=== PATIENT | male | born 1995 | race Caucasian/White ===

== ENCOUNTER 2017-12-04 18:51 | Observation (INO) | payer BC ==
[~2017-12-04] VITALS: Ht 177.8 cm; Wt 81.6 kg
[2017-12-04 19:33] LABS: BASOPHILS # (AUTO) 0.1 (0.0-0.1); BASOPHILS % 0.8 % (0.0-1.0); EOSINOPHILS # (AUTO) 0.1 (0.0-0.4); HEMATOCRIT 46.2 % (38.2-49.6); LYMPHOCYTES # (AUTO) 3.4 (1.0-3.2); LYMPHOCYTES % 32.2 % (18.0-39.1); MEAN CORPUSCULAR HEMOGLOBIN 31.6 pg (28-32); MEAN CORPUSCULAR HGB CONC 34.6 g/dL (31-35); MEAN CORPUSCULAR VOLUME 91.3 fL (81-99); MONOCYTES # (AUTO) 0.7 (0.2-0.8); MONOCYTES % 6.5 % (4.4-11.3); NEUTROPHILS # (AUTO) 6.3 (2.1-6.9); NEUTROPHILS % 59.2 % (38.7-80.0); PLATELET COUNT 296 x10e3/uL (140-360); RED BLOOD COUNT 5.06 x10e6/uL (4.3-5.7); RED CELL DISTRIBUTION WIDTH 12.6 % (11.7-14.4)
[2017-12-04 19:37] LABS: BILIRUBIN,URINE NEGATIVE (NEGATIVE); CLARITY,URINE SL CLOUDY (CLEAR); COLOR,URINE YELLOW (YELLOW); KETONES,URINE NEGATIVE (NEGATIVE); LEUKOCYTE ESTERASE ,URINE NEGATIVE (NEGATIVE); NITRITE,URINE NEGATIVE (NEGATIVE); PROTEIN,URINE DIPSTICK NEGATIVE (NEGATIVE); URINE UROBILINOGEN 0.2 mg/dL (0.2 - 1)
[2017-12-04 19:39] LABS: AMPHETAMINES SCREEN,URINE NEGATIVE (NEGATIVE); BENZODIAZEPINES SCREEN,URINE NEGATIVE (NEGATIVE); PHENCYCLIDINE SCREEN,URINE NEGATIVE (NEGATIVE)
[2017-12-04 19:48] LABS: BACTERIA,URINE FEW /HPF; MUCUS,URINE MODERATE (RARE)
[2017-12-04 19:50] LABS: ALANINE AMINOTRANSFERASE 12 IU/L (0-55); ALBUMIN 4.4 g/dL (3.5-5.0); ALBUMIN/GLOBULIN RATIO 1.4 (0.8-2.0); ALKALINE PHOSPHATASE 77 IU/L (40-150); ANION GAP 12.8 mmol/L (8-16); BLOOD UREA NITROGEN 17 mg/dL (7-26); BUN/CREATININE RATIO 21 (6-25); CALCIUM 9.6 mg/dL (8.4-10.2); CARBON DIOXIDE 24 mmol/L (22-29); CHLORIDE 107 mmol/L (98-107); CREATINE KINASE 193 IU/L (30-200); CREATININE, SERUM 0.82 mg/dL (0.72-1.25); EST GLOMERULAR FILTRATION RATE > 60 ML/MIN (60-); GLUCOSE 101 mg/dL (74-118); POTASSIUM 3.8 mmol/L (3.5-5.1); SODIUM 140 mmol/L (136-145)
--- NOTE | 2017-12-04 20:02 | Diagnostic Imaging Report ---
EXAMINATION: Head CT HISTORY: Woke up with right-sided numbness and weakness COMPARISON: None. TECHNIQUE: Multidetector axial images were obtained without contrast from the foramen magnum to the vertex . The images were reconstructed using brain and bone algorithms. Thin section brain images were reformatted into coronal and sagittal planes. Intravenous contrast: None. Motion/streaking artifact limits the evaluation of the skull base and posterior cranial fossa. FINDINGS: Parenchyma: 1. No abnormal densities. 2. No mass or hemorrhage. No CT evidence of acute territorial vascular insult. Extra-axial spaces:No abnormal density. No extra-axial fluid collections Brain volume: Normal for age. Ventricles: No hydrocephalus or displacement. Arteries: No density suggestive of thrombus. Dural sinuses: No abnormal density. Extra-axial spaces: No abnormal density. Foramen magnum: No mass, Chiari malformation, or basilar invagination. Sella: No obvious mass. Paranasal/mastoid sinuses: Imaged portions unremarkable. Skull/Scalp: No lytic or blastic lesions. No fractures. IMPRESSION: Normal head CT. Signed by: Dr. Krystal Chen M.D. on 12/04/2017 7:58 PM
--- NOTE | 2017-12-04 20:12 | Diagnostic Imaging Report ---
CHEST SINGLE (PORTABLE), 12/04/2017 7:17 PM Technique: CHEST SINGLE (PORTABLE) Comparison: None available. Clinical history: Right-sided weakness Findings: Unremarkable portable appearance of the heart, mediastinum, lungs and pleural spaces. Lung apices are excluded. Impression: 1. Lines/Tubes: None 2. No acute abnormality. Signed by: Dr Lashay Harris MD on 12/04/2017 8:09 PM
--- OUTSIDE RECORDS SUMMARY | 2017-12-04 21:17 | XMS REPORT ---
Author Author [facility] Address Unknown Phone Unavailable Care Team Providers Care Advertising Rep Name Role Phone RAFAEL SANDOVAL Unavailable Unavailable Problems This patient has no known problems. Allergies, Adverse Reactions, Alerts This patient has no known allergies or adverse reactions. Medications This patient has no known medications. Results Test Description Test Time Test Comments Text Results Atomic Results Result Comments CT BRAIN WO [place] [address] Patient Name: MIGUELINA BOLDEN MR #: [id number] : 1995 Age/Sex: 22/M Req # : [id number] Adm Physician: Ordered by: ELDA MENJIVAR MD Report # : [id number] Location: ER Room/Bed: Procedure: [id number] CT/CT BRAIN WO Exam Date: 12/04/17 Exam Time: 1932 REPORT STATUS: Signed EXAMINATION: Head CT HISTORY: Woke up with right-sided numbness and weakness COMPARISON: None. TECHNIQUE: Multidetector axial images were obtained without contrast from the foramen magnum to the vertex . The images were reconstructed using brain and bone algorithms. Thin section brain images were reformatted into coronal and sagittal planes. Intravenous contrast: None. Motion/streaking artifact limits the evaluation of the skull base and posterior cranial fossa. FINDINGS: Parenchyma: 1. No abnormal densities. 2. No mass or hemorrhage. No CT evidence of acute territorial vascular insult. Extra-axial spaces:No abnormal density. No extra-axial fluid collections Brain volume: Normal for age. Ventricles: No hydrocephalus or displacement. Arteries: No density suggestive of thrombus. Dural sinuses: No abnormal density. Extra-axial spaces: No abnormal density. Foramen magnum: No mass, Chiari malformation, or basilar invagination. Sella: No obvious mass. Paranasal/mastoid sinuses : Imaged portions unremarkable. Skull/Scalp: No lytic or blastic lesions. No fractures. IMPRESSION: Normal head CT. Signed by: Dr. Ambika Chen M.D. on 12/04/2017 7:58 PM Dictated By: AMBIKA CHEN MD 57 Transcribed By: KRAIG on 12/04/171957 COPY TO: ELDA MENJIVAR MD CHEST SINGLE (PORTABLE) [place] [address] Patient Name: MIGUELINA BOLDEN MR #: [id number] : 1995 Age/Sex: 22/M Req #: [id number] Adm Physician: Ordered by: ELDA MENJIVAR MD Report #: [id number] Location: ER Room/Bed: ___ Procedure: [id number] DX/CHEST SINGLE (PORTABLE) Exam Date: 12/04/17 Exam Time: 1932 REPORT STATUS: Signed CHEST SINGLE (PORTABLE), 12/04/2017 7:17 PM Technique: CHEST SINGLE (PORTABLE) Comparison: None available. Clinical history: Right-sided weakness Findings: Unremarkable portable appearance of the heart, mediastinum, lungs and pleural spaces. Lung apices are excluded. Impression: 1. Lines/ Tubes: None 2. No acute abnormality. Signed by: Dr Reza Harris MD on 8:09 PM Dictated By: REZA HARRIS MD 08 Transcribed By: KRAIG on 12/04/172008 COPY TO: ELDA MENJIVAR MD
[2017-12-04 21:19] LABS: INR 1.04; PROTHROMBIN TIME 12.8 seconds (11.9-14.5)
[2017-12-04 21:47] LABS: FREE THYROXINE INDEX 2.3851 (1.4-3.8); THYROID STIMULATING HORMONE 1.872 uIU/mL (0.350-4.940)
[2017-12-04] MEDS: SODIUM CHLORIDE 0.9% 1000ML 1,000 ML IV SCH (22:00)
[2017-12-04] MEDS: NICOTINE 21 MG/EA PATCH TOP SCH (22:08)
[2017-12-04 23:55] VITALS: BP 127/78
[2017-12-05] VITALS (8 sets, daily range): BP systolic 105–135; BP diastolic 55–78
[2017-12-05 04:08] LABS: BASOPHILS # (AUTO) 0.1 (0.0-0.1); BASOPHILS % 0.6 % (0.0-1.0); EOSINOPHILS # (AUTO) 0.2 (0.0-0.4); EOSINOPHILS % 1.9 % (0.0-6.0); HEMATOCRIT 43.3 % (38.2-49.6); HEMOGLOBIN 14.8 g/dL (14.0-18.0); LYMPHOCYTES # (AUTO) 4.3 (1.0-3.2); LYMPHOCYTES % 37.1 % (18.0-39.1); MEAN CORPUSCULAR HEMOGLOBIN 31.6 pg (28-32); MEAN CORPUSCULAR HGB CONC 34.2 g/dL (31-35); MEAN CORPUSCULAR VOLUME 92.3 fL (81-99); MONOCYTES # (AUTO) 0.9 (0.2-0.8); MONOCYTES % 7.5 % (4.4-11.3); NEUTROPHILS # (AUTO) 6.1 (2.1-6.9); NEUTROPHILS % 52.6 % (38.7-80.0); PLATELET COUNT 247 x10e3/uL (140-360); RED BLOOD COUNT 4.69 x10e6/uL (4.3-5.7); RED CELL DISTRIBUTION WIDTH 12.7 % (11.7-14.4)
[2017-12-05 04:28] LABS: ALANINE AMINOTRANSFERASE 9 IU/L (0-55); ALBUMIN 3.8 g/dL (3.5-5.0); ALBUMIN/GLOBULIN RATIO 1.5 (0.8-2.0); ALKALINE PHOSPHATASE 64 IU/L (40-150); ANION GAP 12.6 mmol/L (8-16); BLOOD UREA NITROGEN 14 mg/dL (7-26); BUN/CREATININE RATIO 18 (6-25); CALCIUM 9.2 mg/dL (8.4-10.2); CARBON DIOXIDE 23 mmol/L (22-29); CHLORIDE 108 mmol/L (98-107); CREATINE KINASE 167 IU/L (30-200); CREATININE, SERUM 0.76 mg/dL (0.72-1.25); EST GLOMERULAR FILTRATION RATE > 60 ML/MIN (60-); GLUCOSE 97 mg/dL (74-118); POTASSIUM 3.6 mmol/L (3.5-5.1); SODIUM 140 mmol/L (136-145)
[2017-12-05] MEDS: SODIUM CHLORIDE 0.9% 1000ML 1,000 ML IV SCH ×3 (05:02→21:02)
[2017-12-05] MEDS: NICOTINE 21 MG/EA PATCH TOP SCH (08:34)
--- NOTE | 2017-12-05 09:25 | Cardiology Report ---
DATE OF STUDY: December 05, 2017 ECHOCARDIOGRAM M-MODE: Normal chamber wall dimensions. Normal contractility. Normal mitral and aortic valves. No pericardial effusion. SECTOR SCAN: Normal chamber wall dimensions. Normal contractility. Normal mitral, aortic and tricuspid valves. No pericardial effusion. CARDIAC DOPPLER STUDY WITH COLOR: Trace tricuspid regurgitation without significant pulmonary hypertension. CONCLUSIONS 1. Left ventricular ejection fraction is approximately 65%. 2. No evidence of intracardiac thrombi or masses. 3. No evidence of atrial septal defect or ventricular septal defect. 4. Trace tricuspid regurgitation without pulmonary hypertension, probably not clinically significant. Job#: [id number] cc:MAXI OLIVAS MD
--- NOTE | 2017-12-05 10:38 | History and Physical ---
CLINICAL HISTORY: This is a 22-year-old white man admitted via the emergency room because of the right leg weakness with mild right hand weakness. According to the patient, he has had intermittent bilateral leg pains for approximately a year. He also has lower back pains. His current problem started about 4 or 5 days prior to admission, but he did not go to the emergency room at that time thinking the symptoms would improve. His family insisted that he come to the emergency room. He was seen in the emergency room. CT scan of the head was negative. He is being admitted for further evaluation and treatment. PAST MEDICAL HISTORY: Remarkable for bipolar illness and asthma. He denies taking any medications for them. PERSONAL AND SOCIAL HISTORY: He said he has used every drug except he has never used morphine, heroin, or methamphetamine. He has used Joel and is still smoking marijuana, LSD, multiple hallucinogens, uppers and downers. He is still smoking. He said he has not used cocaine since age 15. He is unemployed, used to be a laborer [employer]. FAMILY HISTORY: Noncontributory. REVIEW OF SYSTEMS: Negative. PHYSICAL EXAMINATION GENERAL: His right leg is weak. Right arm is minimally weak. CARDIAC: Jugular veins are not distended. S1, S2 were regular. There is no appreciable murmur. LUNGS: Clear. ABDOMEN: Soft. Bowel sounds are present. EXTREMITIES: No cyanosis, clubbing or edema. LABORATORY STUDIES: Electrolytes and CBC are negative. Echocardiogram was negative. IMPRESSION 1. Right leg weakness with mild right arm weakness. Consider lumbar disk disease. Consider cervical disk disease as well as cerebrovascular accident. CT scan of head negative. Echocardiogram was negative. 2. History of bipolar illness. 3. Multiple drug abuse. The patient is still smoking and smoking Joel and marijuana. 4. History of asthma. RECOMMENDATIONS: Neurology evaluation. Patient has been advised to stop drug abuse. MRI and MRA of the lumbar, cervical and cranial areas have been ordered. Job#: [id number] cc:MD MAXI SIN MD
[2017-12-05 11:32] LABS: CREATINE KINASE 163 IU/L (30-200)
--- NOTE | 2017-12-05 14:06 | Diagnostic Imaging Report ---
Exams: Brain and intracranial MRA without IV contrast History: Right-sided weakness. Comparison studies: Head CT 12/04/2017. Technique: Brain MRI: Sagittal T2 FS, axial DWI, axial T2 FLAIR and axial T1 FLAIR. Intracranial MRA: Axial 3-D [id number] with coronal, sagittal and 3-D MIP reformats. Intravenous contrast: None Findings: Brain: Exam was terminated early due to the patient's condition and at the patient's request. The axial T2, axial T2*GRE and coronal T2 FLAIR sequences were unable to be obtained which which limits this exam. In spite of this limitation: Scalp: No abnormal signal. No masses. Bone marrow: Normal in signal intensity. Brain sulci: Appropriate size for age. Ventricles: Normal in size. No hydrocephalus. Extra axial spaces: No mass, no fluid collection. Parenchyma: There is a 1.6 cm focus of T2 FLAIR hyperintensity with associated restricted diffusion in the left frontal parietal centrum semiovale which extends to the superior margin of the posterior limb of the left internal capsule regional to the left cortical spinal tract which could account for patient's reported symptoms of right-sided weakness. There are additional few scattered T2 FLAIR hyperintense signal changes in the supratentorial white matter. A few of these lesions in the deep left frontal parietal white matter are oriented perpendicular to the ventricular margin. There are additional few scattered subcortical and juxtacortical T2 hyperintense foci. No T1 hypointense lesions are "one to CSF signal intensity. No other mass or other acute ischemic insults. Suprasellar region: No abnormalities. Craniocervical junction: No abnormalities. The foramen magnum is patent. No Chiari malformations. Vessels: Normal flow-voids in the arteries and sinuses. Intracranial MRA: Internal carotid arteries: Patent, no flow abnormalities. Anterior cerebral arteries: Patent, no flow abnormalities in the A1 and proximal A2 segments. Middle cerebral arteries: Patent, no flow abnormalities in the M1 and proximal M2 segments. Vertebral arteries: Patent, no flow abnormalities in the included intradural V4 segments. Basilar artery: Patent, no flow abnormalities. Posterior cerebral arteries: Patent, no flow abnormality is. Anatomical variants: Acom: Patent Pcom: Patent bilaterally Vertebral arteries:Codominant. IMPRESSION: Brain MRI: 1. Exam terminated early due to the patient's condition and not all pulse sequences were obtained which limits evaluation. Recommend future MRI exam to be performed with sedation. 2. Acute insult deep left frontoparietal which extends to the posterior left internal capsule with cytotoxic edema which would account for the patient's right-sided weakness. Differential includes acute ischemia for which nonspecific vasculopathy is a consideration in a patient of this age. Drug-related ischemic changes/vasculopathy could have this appearance in the appropriate clinical setting. Acute demyelinating lesion is also a consideration. 3. Additional foci of signal abnormality in the supratentorial white matter are nonspecific but could reflect demyelinating disease, vasculopathy or other nonspecific microvascular ischemic changes. Intracranial MRA: No intracranial MRA abnormalities. Recommendation: Contrast-enhanced brain MRI to further evaluate. Cervical and thoracic spine MRIs without with IV contrast could also be considered to further exclude the possibility of demyelinating disease in the spinal cord. Findings discussed with the patient's nurse, Ms. Farrell, at 1:40 PM on 12/05/2017. Signed by: Dr. Danilo Mai M.D. on 12/05/2017 2:02 PM
[2017-12-05 19:31] LABS: CREATINE KINASE 138 IU/L (30-200)
[2017-12-05] MEDS ORDERED: LORAZEPAM INJ 2 MG/ML VIAL IV ONE (21:15)
[2017-12-05 21:20] LABS: CHOL/HDL RATIO 4.4 (3.9-4.7)
[2017-12-06] VITALS: BP 143/67
[2017-12-06] MEDS: SODIUM CHLORIDE 0.9% 1000ML 1,000 ML IV SCH (03:51)
[2017-12-06 04:00] VITALS: BP 114/56
[2017-12-06 07:39] VITALS: BP 114/57
[2017-12-06] MEDS: NICOTINE 21 MG/EA PATCH TOP SCH (07:50)
--- NOTE | 2017-12-06 11:00 | Cardiology Report ---
DATE OF STUDY: December 04, 2017 DOPPLER SCAN OF THE CAROTID Left and right carotid arteries were interrogated using the duplex scanning method. There were no high-grade velocities. Vertebral flow appears to be in normal direction bilaterally. CONCLUSIONS 1. No significant disease bilaterally. 2. Vertebral flow appears to be in normal direction bilaterally. Job#: [id number] cc:MD MAXI SIN MD
--- NOTE | 2017-12-06 12:46 | Discharge Summary ---
HISTORY OF PRESENT ILLNESS: This is a 22-year-old white man, a patient of Dr. Victor, admitted via the emergency room because of right leg weakness and mild right arm weakness. Please refer to my previous dictation concerning details of current illness, past medical history, personal and social history, family history, review of systems, physical examination and initial laboratory studies. HOSPITAL COURSE: The patient had a CT scan of the head in the emergency room that was negative. Subsequent MRI scan with MRA showed a large insult area in the left frontal parietal lobe thought to be due to ischemic injury from drug abuse. The patient however did not complete these studies completely since he asked to be stopped in the middle of the MRA procedure. Subsequently he pulled out his IV and left against medical advice and was unresponsive to calls from the hospital subsequently. DISCHARGE DIAGNOSES 1. Left frontoparietal drug-induced ischemic injury with right leg severe weakness and mild right arm weakness. 2. Multiple drug abuse. 3. History of bipolar illness. 4. History of asthma. 5. Signed out against medical advice. ALEXANDRIA GARCIA MD Job#: [id number] DG cc:MAXI OLIVAS RES cc:FIDEL CLEMENS MD
--- NOTE | 2017-12-06 14:39 | Consultation ---
DATE OF CONSULTATION: December 05, 2017 NEUROLOGY CONSULT NOTE HISTORY OF PRESENT ILLNESS: Mr. John is a 22-year-old right hand-dominant man with past medical history significant for attention deficit disorder and bipolar disorder (not treated), who presented to [facility] on December 04, 2017 with right hemiparesis. Between 8:30 and 10:00 a.m. on either November 29 or November 30, 2017, the patient awoke with numbness and tingling affecting his right arm and leg, leg greater than arm. Mr. John does not report a visual field cut or other disturbance, dysarthria, aphasia, facial droop, numbness over 1 side of the face, dizziness or confusion. He does report tingling of the right arm and leg, leg greater than arm. He endorses impairment of gait as well. The patient does not seek immediate evaluation of his symptoms. However, as the patient's symptoms worsened over a period of 4 days, he was persuaded by family members to seek medical evaluation. The patient has not experienced similar symptoms previously. He does not report a headache associated with the above symptoms. There is no known family history of heart attack or strokes before the age of 50 years, pulmonary emboli, deep venous thrombosis or multiple miscarriages in female relatives. Upon arrival in the emergency center, the patient was afebrile with a blood pressure 111/76 mmHg and pulse of 90 beats per minute. The patient's neurological examination was significant for mild hemiparesis with drift of the right arm and right leg. A CT of the brain without contrast was performed and did not show evidence of recent large territorial ischemia or hemorrhage. Mr. John was admitted to [facility] for further evaluation and treatment of symptoms. REVIEW OF SYSTEMS: Right hemiparesis, numbness, and tingling over the right arm and leg, low back pain, impairment of gait. Otherwise, the 12-point review of systems is negative. PAST MEDICAL HISTORY: Attention deficit disorder, bipolar disorder, asthma. PAST SURGICAL HISTORY: None. PRIOR HOSPITALIZATIONS: The patient does not report hospitalizations for underlying medical conditions. He does report prior admissions to inpatient psychiatric facilities. FAMILY HISTORY: The patient's paternal great grandmother in her 40s from a ruptured cerebral artery aneurysm. His paternal grandfather has hypertension. His paternal grandmother has hypertension and rheumatoid arthritis. Mr. John's maternal grandmother is from breast and ovarian cancer. His father is alive and has hypertension. His mother is alive. Her medical history is significant for breast and ovarian cancer. Mr. John has 3 sisters. Two sisters are alive and healthy. A 3rd sister is alive and possibly has breast cancer. The patient has 1 child, a son, who is alive and healthy. SOCIAL HISTORY: The patient is single. He completed school through the 10th grade. 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 The patient does report tobacco use. He smokes 1-1/2 packs per day and has done so for the past 10 years. The patient reports alcohol use. Mr. John says he gets "hammered" once every 6 months. In the interim, he drinks an occasional beer. The patient does report recreational drug use. He smokes marijuana every other day. He has smoked synthetic marijuana some: Last use was 2 to 3 months ago. HOME MEDICATIONS: None. ALLERGIES: DEPAKOTE CAUSES PSYCHOSIS. NO KNOWN DRUG ALLERGIES. NO KNOWN ALLERGIES TO LATEX. NO KNOWN ALLERGIES TO IODINE OR OTHER CONTRAST MATERIAL. PHYSICAL EXAMINATION VITAL SIGNS: Height 70 inches. Weight 180 lbs. BMI 25.8 kg per meter squared. Blood pressure 125/66 mmHg. Pulse 57 beats per minute. Respiratory rate 20 breaths per minute. Oxygen saturation 98% on room air. GENERAL: The patient is awake and alert, does not appear distressed. HEENT: Normocephalic, atraumatic. Pupils are equal, round, and reactive to light. Moist mucous membranes. NECK: Supple. No appreciable thyromegaly. No appreciable carotid bruits. CARDIOVASCULAR: S1, S2 regular rate and rhythm. No murmurs, rubs or gallops. RESPIRATORY: Clear to auscultation bilaterally. No wheezes, rhonchi or rales. EXTREMITIES: The skin is warm and dry. No clubbing, cyanosis or edema. The posterior tibial and dorsalis pedis pulses are 2+ and symmetric. SKIN: No rashes or lesions. NEUROLOGIC MEMORY/ATTENTION: The patient is awake and alert, oriented to person, place, time, and situation. CRANIAL NERVES: Cranial nerve I--not tested. Cranial nerve II, III, IV--pupils are equal and round, react briskly to light (from 5 mm to 3 mm). Extraocular movements intact. No nystagmus. Cranial nerve V--sensation to light touch and pinprick is intact in the bilateral V1 through V3 distributions. Strength of the temporalis and masseter muscles is within normal limits. Cranial nerve VII--the face is symmetric as are all facial movements. Strength is within normal limits. Cranial nerve VIII--hearing is intact to finger rub bilaterally. Cranial nerve XI, X--the soft palate elevates equally and symmetrically. Cranial nerve XI--normal strength of the bilateral sternocleidomastoid and trapezius muscles. Cranial nerve XII--the tongue protrudes midline and moves symmetrically from side to side. STRENGTH: Bulk is normal and strength is 5/5 in the bilateral deltoids, biceps, triceps, wrist flexors and extensors, finger flexors and extensors, intrinsic hand muscles, hip flexors, knee flexors and extensors, ankle dorsiflexion and plantar flexion, and intrinsic foot muscles except as follows: Right triceps 4/5 right, wrist extensors 4/5, right finger extensors 4/5, right hip flexors 4/5, right knee flexors 4/5, right knee extensors 4+/5, right ankle dorsiflexion 4/5, right ankle plantarflexion 4+/5. Tone is normal. DTRs: Deep tendon reflexes are 3+ and symmetric at the triceps biceps, brachioradialis, patellas, and Achilles. Plantar responses are equivocal on the right, flexor on the left. Absent clonus. [place] Quezada's sign bilaterally. SENSATION: Sensation is intact to light touch and pinprick in both arms and both legs except as follows: Diminished sensation to light touch and pinprick over the right arm. CEREBELLAR: Hkxwwm-peav-pgbndw and heel-rice movements revealed dysmetria on the right, more than is expected for the degree of paresis. Gcxqgh-olbr-movadz and heel-rice movements are normal on the left. GAIT: Deferred. SPEECH: Spontaneous speech is normal without appreciable dysarthria or aphasia. Repetition is intact. INVOLUNTARY MOVEMENTS: None. PRONATOR DRIFT: Right arm and right leg. LABORATORY DATA: Sodium 140, potassium 3.6, chloride 108, carbon dioxide 23, anion gap 12.6, BUN 14, creatinine 0.76, estimated GFR greater than 60, BUN to creatinine ratio 18, glucose 97, calcium 9.2, total bilirubin 0.6, AST 13, ALT 9, alkaline phosphatase 64, total protein 6.4, albumin 3.8, globulin 2.6, albumin to globulin ratio 1.5. CK 167, 163, 138. CK-MB 1.80, 1.80, 1.40. Troponin-I less than 0.001, less than 0.001, less than 0.001. Homocysteine level is pending. TSH 1.872. Free T4 index 2.385. Thyroxine (T4) 8.86, T3 uptake 26.92. The CBC with differential and platelets reveals a white blood cell count of 11.55 with a normal differential. The hemoglobin and hematocrit are 14.8 and 43.3 respectively. The platelet count is 247,000. PT 12.8, INR 1.04, PTT 32.6. Plasminogen activity pending. Protein C activity pending. APC resistance--PTT pending. Free protein S pending. Antithrombin III activity pending. Urinalysis is unremarkable. Urine drug screen is positive for cannabinoids. MARTHA screen is pending. Factor II DNA analysis is pending. DIAGNOSTIC STUDIES 1. EKG, normal sinus rhythm at 85 beats per minute. EKG December 04, 2017: Normal sinus rhythm at 85 beats per minute. 2. Echocardiogram, December 05, 2017: Ejection fraction 65% to 70%. Concentric left ventricular hypertrophy. Trace tricuspid regurgitation and pulmonic insufficiency. 3. Bilateral carotid ultrasound with Doppler on December 05, 2017: No hemodynamically significant disease. Flow is antegrade in the bilateral vertebral arteries. 4. Chest x-ray December 04, 2017: No acute abnormality. 5. CT of the brain without contrast December 04, 2017: On my review, there is no evidence of recent large territorial ischemia, hemorrhage, mass or mass effect. 6. MRI of the brain without contrast on December 05, 2017: There is an acute insult in the left frontoparietal white matter, which extends to the posterior left internal capsule with cytoxic edema. The differential diagnosis includes acute ischemia versus drug-related ischemic changes versus demyelinating lesion. There are additional foci of T2 /FLAIR hyperintensity in the supratentorial white matter, which are nonspecific. These changes could reflect demyelinating disease or chronic small vessel ischemic disease. 7. MRA of brain, December 05, 2017: No intracranial abnormalities. ASSESSMENT AND PLAN: Mr. John is a 22-year-old right-hand dominant man with past medical history significant for attention deficit disorder and bipolar disorder (untreated), admitted to [facility] on December 04, 2017 with 4-day history of right hemiparesis with acute onset. The patient's neurological examination is significant for mild right hemiparesis, diminished sensation to light touch and pinprick over the right arm, diffuse hyperreflexia, dysmetria of the right arm and right leg (out of bounds of paresis) and drift in the right arm and right leg. The patient's laboratory data and other diagnostic studies have been reviewed and are documented above. Differential diagnosis for Mr. John is ischemic stroke versus multiple sclerosis. Mr. John is quite young to have experienced a stroke. Other than tobacco use, he is not known to have other vascular risk factors, which would put him at risk for either a heart attack or a stroke. However, patient is at an age when multiple sclerosis commonly presents. The diffuse hyperreflexia on neurological examination may be indicative of an underlying demyelinating disorder. RECOMMENDATIONS 1. Lipid panel and hemoglobin A1c to complete the stroke evaluation. 2. A hypercoagulable evaluation has been ordered and is pending. Will add factor V Leiden to the studies. 3. MRI of brain with contrast. 4. MRI of the cervical spine with and without contrast. 5. Ativan 1 mg intravenously will be international relations professor for the MRI. 6. Defer treatment of the remaining medical comorbidities to the primary and other services following the patient. Thank you for this consultation. I will continue to follow the patient while he remains in the hospital. TIME SPENT: 70 minutes. Job#: [id number] SUNDAR AUGUST
== END 2017-12-06 09:35 | disposition left against medical advice (07) ==
LOC: ER 18:51 → ERHOLD 21:15 → MED/SURG 23:40
PROVIDERS: ADMIT Internal Medicine Cardiovascular Disease; ATTEND Internal Medicine Cardiovascular Disease
DX: I67.82 Cerebral ischemia (principal); G81.91 Hemiplegia, unspecified affecting right dominant side; R53.1 Weakness; F31.9 Bipolar disorder, unspecified; F12.10 Cannabis abuse, uncomplicated; F16.10 Hallucinogen abuse, uncomplicated; J45.909 Unspecified asthma, uncomplicated; F98.8 Other specified behavioral and emotional disorders with onset usually occurring in childhood and adolescence; Z72.0 Tobacco use
CPT/HCPCS: 36415; 70544; 70551; 80053; 80061; 82550; 82553; 83036; 84484; 85025; 93005; 93306; 93880; 97110; 97161; 99284; G0378 ×3; J7030 ×3